=== PATIENT | male | born 1975 | race Caucasian/White ===

== ENCOUNTER 2016-08-05 11:12 | Emergency (ER) | payer MEDICAID, OTHER ==
[~2016-08-05 11:12] MED LIST: PERC5TAB12 PO; Z.0.NO CURRENT MEDS
[2016-08-05 11:16] VITALS: BP 128/87; PULSE 70; RESP 16; TEMP 98.3; O2SAT 96
[2016-08-05] MEDS ORDERED: LORA-392 PO (11:28)
[2016-08-05] MEDS ORDERED: PERC5TAB12 PO (11:28)
[2016-08-05] MEDS ORDERED: SODIUM CHLOR 0.9% 1000 ML INJ 1,000 ML IV SCH (11:40)
--- NOTE | 2016-08-05 11:44 | PD ---
HPI Chief Complaint: GI Complaint Time Seen by Provider: 11:31 Travel History International Travel<30 days: No Contact w/Intl Traveler<30days: No Traveled to known affect area: No History of Present Illness HPI Patient is a 41-year-old male presents emergency department for evaluation of cough congestion nausea and periumbilical abdominal pain for the past 3 days. Patient states his been taking some Tylenol [id number] without relief. Describes the pain is cramping and very mild. States it is not getting any better and decided to come in and be seen. Did not have a flu shot this year denies any fever. He's had sputum production but swallows down does not color. Denies similar symptoms in the past. Denies any vomiting diarrhea blood in the stool melanotic stools. PFSH Past Medical History Heart Rhythm Problems: No Cancer: No Cardiovascular Problems: Yes High Cholesterol: Yes Congestive Heart Failure: No Diabetes: No Endocrine: No Genitourinary: No Hepatitis: No Hiatal Hernia: No Hypertension: Yes Immune Disorder: No Musculoskeletal: No Neurologic: Yes (numbness to bilat hands) Psychiatric: Yes (anxiety) Reproductive: No Respiratory: No Seizures: No Thyroid Disease: No Tetanus Vaccination: > 5 Years Influenza Vaccination: No Past Surgical History AICD: No Appendectomy: Yes Cardiac Surgery: No Coronary Artery Bypass Graft: No Joint Replacement: No Oral Surgery: Yes (WISDOM TEETH REMOVED) Pacemaker: No Other Surgery: Yes (SEPTOPLASTY) Family History Family Myocardial Infarction: Yes Family Hypercholesterolemia: Yes Social History Alcohol Use: Yes (SOCIALLY) Tobacco Use: No Substance Use: No Allergies-Medications (Allergen,Severity, Reaction): Coded Allergies: No Known Allergies (Unverified , 08/05/16) no known med allergies per patient Reported Meds & Prescriptions Reported Meds & Active Scripts Active Zofran Odt (Ondansetron Odt) 4 Mg Tab 4 Mg SL Q6HR PRN Reported Ativan (Lorazepam) 0.5 Mg Tab 0.5 Mg PO HS PRN Percocet (Oxycodone-Acetaminophen) 5-325 mg Tab 1-2 Tab PO Q6H PRN Review of Systems Except as stated in HPI: all other systems reviewed are Neg Physical Exam Narrative GENERAL: Well-developed well-nourished no apparent distress, smells of cigarette smoke. SKIN: Warm and dry. HEAD: Atraumatic. Normocephalic. EYES: Pupils equal and round. No scleral icterus. No injection or drainage. ENT: No nasal bleeding or discharge. Mucous membranes pink and moist. TMs clear bilaterally, oropharynx clear. NECK: Trachea midline. No JVD. No lymphadenopathy. CARDIOVASCULAR: Regular rate and rhythm. No murmur appreciated. RESPIRATORY: No accessory muscle use. Clear to auscultation. Breath sounds equal bilaterally. GASTROINTESTINAL: Abdomen soft, non-tender, nondistended. Hepatic and splenic margins not palpable. No peritoneal signs no percussive no rebound tenderness Hanson sign negative psoas and obturator signs negative. The sclerae benign abdomen. MUSCULOSKELETAL: No obvious deformities. No clubbing. No cyanosis. No edema. NEUROLOGICAL: Awake and alert. No obvious cranial nerve deficits. Motor grossly within normal limits. Normal speech. PSYCHIATRIC: Appropriate mood and affect; insight and judgment normal. Data Data Last Documented VS Vital Signs Date Time Temp Pulse Resp B/P Pulse Ox O2 Delivery O2 Flow Rate FiO2 08/05/16 13:09 60 18 140/79 98 Room Air 08/05/16 11:16 98.3 Orders Chest, Pa & Lat (08/05/16 ) Complete Blood Count With Diff (08/05/16 11:40) Comprehensive Metabolic Panel (08/05/16 11:40) Lipase (08/05/16 11:40) Iv Access Insert/Monitor (08/05/16 11:40) Ecg Monitoring (08/05/16 11:40) Oximetry (08/05/16 11:40) Ondansetron Inj (Zofran Inj) (08/05/16 11:45) Sodium Chlor 0.9% 1000 Ml Inj (Ns 1000 M (08/05/16 11:40) Sodium Chloride 0.9% Flush (Ns Flush) (08/05/16 11:45) Influenzae A/B Antigen (08/05/16 11:42) Electrocardiogram (08/05/16 ) Troponin I (08/05/16 12:48) Labs Laboratory Tests Test 08/05/16 11:50 White Blood Count 6.7 TH/MM3 Red Blood Count 4.89 MIL/MM3 Hemoglobin 15.6 GM/DL Hematocrit 44.4 % Mean Corpuscular Volume 90.8 FL Mean Corpuscular Hemoglobin 31.9 PG Mean Corpuscular Hemoglobin 35.1 % Concent Red Cell Distribution Width 13.2 % Platelet Count 279 TH/MM3 Mean Platelet Volume 7.1 FL Neutrophils (%) (Auto) 79.0 % Lymphocytes (%) (Auto) 15.2 % Monocytes (%) (Auto) 4.9 % Eosinophils (%) (Auto) 0.3 % Basophils (%) (Auto) 0.6 % Neutrophils # (Auto) 5.4 TH/MM3 Lymphocytes # (Auto) 1.0 TH/MM3 Monocytes # (Auto) 0.3 TH/MM3 Eosinophils # (Auto) 0.0 TH/MM3 Basophils # (Auto) 0.0 TH/MM3 CBC Comment DIFF FINAL Differential Comment Sodium Level 141 MEQ/L Potassium Level 4.3 MEQ/L Chloride Level 107 MEQ/L Carbon Dioxide Level 24.7 MEQ/L Anion Gap 9 MEQ/L Blood Urea Nitrogen 12 MG/DL Creatinine 0.98 MG/DL Estimat Glomerular Filtration 84 ML/MIN Rate Random Glucose 104 MG/DL Calcium Level 8.6 MG/DL Total Bilirubin 0.5 MG/DL Aspartate Amino Transf 20 U/L (AST/SGOT) Alanine Aminotransferase 50 U/L (ALT/SGPT) Alkaline Phosphatase 36 U/L Troponin I LESS THAN 0.02 NG/ML Total Protein 7.1 GM/DL Albumin 3.9 GM/DL Lipase 225 U/L MDM Medical Decision Making Medical Screen Exam Complete: Yes Emergency Medical Condition: Yes Interpretation(s) EKG shows normal sinus rhythm with normal axis and normal R-wave progression. ST elevations in V3 through V6 as well as II, III, and F aVF consistent with early repolarization. No change from 03/15/2015. Intervals within normal limits. This is borderline EKG. Differential Diagnosis Flu, pneumonia, URI, nausea, acute abdomen highly unlikely, acute appendicitis highly unlikely, Narrative Course Patient was remitted emerge very appears well in no apparent distress. He was offered pain medicine declined. He is given Zofran as well as normal saline. Initial workup including CBC CMP and troponin are completely within normal limits, rapid flu negative,'s chest x-ray negative. Discussed with the patient since medic management for URI symptoms and return to ED criteria. Diagnosis Primary Impression: URI (upper respiratory infection) Qualified Code: J06.9 - Upper respiratory tract infection, unspecified type Additional Impression: Nausea Patient Instructions: Abdominal Pain (ED), Cigarette Smoking and Your Health ( GEN), General Instructions, How to Stop Smoking (DC), Upper Respiratory Infection (DC) Med/Other Pt SpecificInfo: Prescription(s) given Scripts Ondansetron Odt (Zofran Odt)4 Mg Tab4 Mg SL Q6HR PRN (Nausea/Vomiting) #30 TAB Ref 0 Prov:Marcus Ferrer MD 08/05/16 Disposition: 01 DISCHARGE HOME Condition: Stable Marcus Ferrer MD Aug 05, 2016 11:44
[2016-08-05] MEDS ORDERED: ONDANSETRON HCL 4 MG/2 ML VIAL IVP ONE (11:45)
[2016-08-05] MEDS ORDERED: SODIUM CHLORIDE 0.9% FLUSH 5 ML FLUSH IVF PRN (11:45)
[2016-08-05 11:57] LABS: AUTOMATED NEUTROPHIL # 5.4 TH/MM3 (1.8-7.7); BASOPHIL % 0.6 % (0.0-2.0); EOSINOPHIL % 0.3 % (0.0-4.0); HEMATOCRIT 44.4 % (39.0-51.0); HEMO FLAGS DIFF FINAL; LYMPH % 15.2 % (9.0-44.0); MEAN CELL VOLUME 90.8 FL (80.0-100.0); MEAN CORPUSCULAR HEMOGLOBIN 31.9 PG (27.0-34.0); MEAN CORPUSCULAR HGB CONC 35.1 % (32.0-36.0); MONO % 4.9 % (0.0-8.0); PLATELET COUNT 279 TH/MM3 (150-450); RED BLOOD COUNT 4.89 MIL/MM3 (4.50-5.90); RED CELL DISTRIBUTION WIDTH 13.2 % (11.6-17.2); WHITE BLOOD COUNT 6.7 TH/MM3 (4.0-11.0)
[2016-08-05 12:00] VITALS: O2SAT 98
[2016-08-05 12:05] LABS: CHLORIDE 107 MEQ/L (98-107); POTASSIUM 4.3 MEQ/L (3.5-5.1); SODIUM (NA) 141 MEQ/L (136-145)
[2016-08-05 12:08] LABS: ANION GAP 9 MEQ/L (5-15); BICARBONATE 24.7 MEQ/L (21.0-32.0)
[2016-08-05 12:09] LABS: BLOOD UREA NITROGEN 12 MG/DL (7-18)
[2016-08-05 12:11] LABS: ALT (GPT) 50 U/L (12-78); AST (GOT) 20 U/L (15-37); GLOMERULAR FILTRATION RATE 84 ML/MIN (>89)
[2016-08-05 12:13] LABS: TOTAL BILIRUBIN ADULT 0.5 MG/DL (0.2-1.0)
[2016-08-05 12:14] LABS: ALKALINE PHOSPHATASE 36 U/L (45-117)
[2016-08-05] MEDS ORDERED: ZOFR4TAB3 SL (12:43)
--- NOTE | 2016-08-05 13:00 | RADHPO ---
EXAM DATE/TIME: 08/05/2016 12:12 [facility] COMPARISON: No previous studies available for comparison. INDICATIONS : Congestion and loss of appetite. MEDICAL HISTORY : None. SURGICAL HISTORY : None. ENCOUNTER: Initial ACUITY: 1 week PAIN SCORE: 3/10 LOCATION: Bilateral chest FINDINGS: PA and lateral views of the chest demonstrate the lungs to be symmetrically aerated without evidence of mass, infiltrate or effusion. The cardiomediastinal contours are unremarkable. Osseous structure s are intact. CONCLUSION: No evidence of acute cardiopulmonary disease. Jose Clark MD on August 05, 2016 at 12:58 Board Certified Radiologist. This report was verified electronically.
[2016-08-05 13:09] VITALS: BP 140/79; PULSE 60; RESP 18; O2SAT 98
--- NOTE | 2016-08-06 13:41 | EKG ---
Date Performed: 08/05/2016 Time Performed: 12:53:40 PTAGE: 41 years EKG: Sinus rhythm Early repolarization Borderline ECG Since PREVIOUS TRACING , no significant change noted PREVIOUS TRACIN03/25/2015 10.20 DOCTOR: Froy Arechiga Interpretating Date/Time 08/06/2016 13:40:27
== END 2016-08-05 13:44 | disposition home or self-care (01) ==
LOC: PHED 11:12
DX: J06.9 Acute upper respiratory infection, unspecified (principal); E78.00 Pure hypercholesterolemia, unspecified; F41.9 Anxiety disorder, unspecified
CPT/HCPCS: 71020; 80053; 83690; 84484; 85025; 87804; 93005; 96361; 96374; 99284; J2405; J7030